=== PATIENT | female | born 1975 | race Caucasian/White ===

== ENCOUNTER 2019-03-21 16:48 | Emergency (ER) | payer MEDICAID ==
[2019-03-21 17:47] LABS: BASO % 0.1 % (0-6); EOS % 0.5 % (0-6); GRAN % 75.4 % (47-80); HEMOGLOBIN 11.4 gm/dl (11.6-16.0); LYMPH % 17.4 % (16-45); MEAN CELL VOLUME 92.5 fl (81-97); MEAN CORPUSCULAR HEMOGLOBIN 29.3 pg (27-33); MEAN CORPUSCULAR HGB CONC 31.7 g/dl (32-36); MONO % 6.6 % (0-9); PLATELET COUNT 230 K/uL (130-400); RED BLOOD COUNT 3.89 M/uL (3.80-5.40); RED CELL DISTRIBUTION WIDTH 12.6 % (11.5-14.5); WHITE BLOOD COUNT W/O DIFF 9.3 K/uL (4.2-12.2)
--- NOTE | 2019-03-21 17:53 | Emergency Department Record ---
History of Present Illness - General Chief complaint: Female Urogenital Problem Stated complaint: NO BOWEL/URINATE 2 WEEKS Time Seen by Provider: 03/21/19 17:32 Source: Patient Mode of Arrival: Ambulatory Limitations: No limitations - History of Present Illness Initial comments: 43 yo female presents to ED for evaluation of no BM x 2 weeks despite increased appetite. Patient denies abdominal pain symptoms, denies nausea or vomiting, denies fevers, chills, or recent illness. On further questioning, patient does report small BM x 2 with use of Dulcolax. Patient denies previous abdominal surgery, and denies health problems at her baseline. MD Complaint: Other Onset/Timin -: Week(s) Consistency: Constant Improves with: None Worsens with: None Patient : No Associated Symptoms: Denies other symptoms - Related Data Previous Rx's Medication Instructions Recorded Polyethylene Glycol 3350 [Miralax] 1 packet PO DAILY #15 packet 03/21/19 Allergies Allergy/AdvReac Type Severity Reaction Status Date / Time No Known Drug Allergies Allergy Verified 03/21/19 17:05 Travel Screening - Travel/Exposure Within Last 30 Days Have you traveled within the last 30 days?: No Review of Systems Constitutional: Denies: Chills, Fever, Malaise, Night sweats Eyes: Denies: Eye discharge, Eye pain ENT: Denies: Congestion, Ear pain, Epistaxis Respiratory: Denies: Cough, Dyspnea Cardiovascular: Denies: Chest pain, Dyspnea on exertion Endocrine: Denies: Fatigue, Heat or cold intolerance Gastrointestinal: Reports: Constipation. Denies: Abdominal pain, Nausea, Vomiting Genitourinary: Denies: Incontinence, Retention Musculoskeletal: Denies: Arthralgia, Back pain Skin: Denies: Bruising, Change in color Neurological: Denies: Abnormal gait, Confusion, Headache, Tingling, Tremors Psychiatric: Denies: Anxiety Hematological/Lymphatic: Denies: Anemia, Blood Clots Past Medical History - SOCIAL HISTORY Smoking Status: Current every day smoker Alcohol Use: None Drug Use: None - RESPIRATORY Hx Respiratory Disorders: No - CARDIOVASCULAR Hx Cardio Disorders: No - NEURO Hx Neuro Disorders: No - GI Hx GI Disorders: No - Hx Genitourinary Disorders: No - ENDOCRINE Hx Endocrine Disorders: No - PSYCH Hx Psych Problems: No - HEMATOLOGY/ONCOLOGY Hx Hematology/Oncology Disorders: No Family Medical History Any Significant Family History?: No Physical Exam - General General Appearance: Alert, Oriented x3, Cooperative, No acute distress, Other (Flat affect on examination) Limitations: No limitations - Head Head exam: Atraumatic, Normocephalic, Normal inspection Head exam detail: negative: Abrasion, Contusion, Ma's sign, General tender ness, Hematoma, Laceration - Eye Eye exam: Normal appearance. negative: Conjunctival injection, Periorbital swelling, Periorbital tenderness, Scleral icterus - ENT Ear exam: negative: Auricular hematoma, Auricular trauma Nasal Exam: negative: Active bleeding, Discharge, Dried blood, Foreign body Mouth exam: negative: Drooling, Laceration, Muffled voice, Tongue elevation - Neck Neck exam: Normal inspection. negative: Meningismus, Tenderness - Respiratory Respiratory exam: Normal lung sounds bilaterally. negative: Respiratory distress, Rhonchi, Stridor, Wheezes - Cardiovascular Cardiovascular Exam: Regular rate, Normal rhythm, Normal heart sounds - GI/Abdominal GI/Abdominal exam: Soft, Other (Abdominal examination is completely non-tender ). negative: Distended, Rebound, Rigid, Tenderness - Rectal Rectal exam: Deferred - exam: Deferred - Extremities Extremities exam: Normal inspection. negative: Pedal edema, Tenderness - Back Back exam: Denies: CVA tenderness (R), CVA tenderness (L) - Neurological Neurological exam: Alert, Normal gait, Oriented X3 - Psychiatric Psychiatric exam: Flat affect - Skin Skin exam: Normal color. negative: Abrasion Type of lesion: negative: abrasion Course Vital Signs 03/21/19 16:58 Temperature 98.2 F Pulse Rate 74 Respiratory 20 Rate Blood Pressure 111/67 Pulse Ox 99 - Reevaluation(s) Reevaluation #1: 03/21/19 17:52 Patient was seen and examined Abdominal examination is 100% non-tender, no pain with palpation There is no clinical concern for bowel obstruction or other acute surgical process based on my examination. Will obtain Abdomen series to evaluate for constipation, basic laboratory studies, and reassess. Reevaluation #2: 03/21/19 18:11 Laboratory studies were reviewed and appear grossly unremarkable for an acute process. 03/21/19 18:34 Abdomen Series: Stool throughout the colon No obstructive process is identified Patient was updated on all results, will initiate treatment with Miralax as directed daily to facilitate bowel movements. Patient was instructed to call Dr. Cruz's office for a follow-up appointment in 3-5 days as directed. Patient is otherwise well appearing and stable for discharge home at this time. Medical Decision Making - Lab Data Result diagrams: 03/21/19 17:40 03/21/19 17:40 Disposition Disposition: Discharge Clinical Impression: Constipation Qualifiers: Constipation type: unspecified constipation type Qualified Code(s): K59.00 - Constipation, unspecified Disposition: Home, Self-Care Condition: (2) Stable Instructions: Constipation (ED) Additional Instructions: Return to ED if your symptoms worsen or if you have any concerns. Miralax as directed. Follow-up with a primary care provider for further evaluation in 3-5 days as directed. Prescriptions: Polyethylene Glycol 3350 [Miralax] 1 packet PO DAILY #15 packet Forms: Patient Portal Access Time of Disposition: 18:34 Quality - Quality Measures Quality Measures: N/A - Blood Pressure Screening Does Patient Have Any of the Following: No Blood Pressure Classification: Normal BP Reading Systolic Measurement: 111 Diastolic Measurement: 67 Screening for High Blood Pressure: < Normal BP, F/U Not Required > [G8783]
[2019-03-21 17:58] LABS: BLOOD UREA NITROGEN 7 mg/dL (6-20); CREATININE 0.6 mg/dL (0.5-0.9); EST GLOMERULAR FILTRATION RATE > 60 mL/min; TOTAL PROTEIN 6.2 g/dL (6.6-8.7)
[2019-03-21 18:00] LABS: GLUCOSE,RANDOM 90 mg/dL (74-109)
[2019-03-21 18:03] LABS: ALB/GLOB RATIO 1.4 (1.1-1.8); ALBUMIN 3.6 g/dL (4.0-5.0); ALKALINE PHOSPHATASE 44 U/L (35-104); ALT/SGPT 11 U/L (<33); AST/SGOT 14 U/L (10.0-35.0)
--- NOTE | 2019-03-21 18:44 | RADIOLOGY REPORT ---
EXAMINATION: Acute Abdomen Series Complete EXAM DATE: 03/21/2019 6:05 PM TECHNIQUE: Upright and supine abdomen with frontal view chest INDICATION: No BM x 2 weeks COMPARISON: None ENCOUNTER: Not applicable CHEST FINDINGS: Heart and vessels: Normal. Mediastinum: Unremarkable. Lungs: Normal. Pleural space: No pleural effusion or pneumothorax. Bones: Unremarkable. ABDOMEN FINDINGS: Free Intraperitoneal Air: None. Bowel: There is a prominent volume of stool within the colon. No focally dilated air-filled loop of b owel. Abnormal Calcifications: None. Bones: Unremarkable. Other Findings: None. IMPRESSION Prominent fecal load. Dictated by: Elie Nixon MD on 03/21/2019 6:41 PM. .
== END 2019-03-21 18:56 | disposition home or self-care (01) ==
LOC: ER 16:48
DX: K59.00 Constipation, unspecified (principal); F17.210 Nicotine dependence, cigarettes, uncomplicated
CPT/HCPCS: 74022; 80053; 85025; 99283